=== PATIENT | female | born 1980 | race Caucasian/White ===

== ENCOUNTER 2017-11-29 14:44 | Emergency (ER) | payer OTHER ==
[2017-11-29 15:56] VITALS: BP 116/68
--- NOTE | 2017-11-29 16:06 | UC ---
Eye Complaint HPI - HPI Summary HPI Summary: 37-year-old female comes in to clinic today with a chief complaint of swelling in the right lower lateral eyelid. It started about a week ago. It's been getting progressively bigger now it's irritating her eye. This been no drainage no difficulty with vision no sinusitis infection symptoms. No vision change. - History of Current Complaint Chief Complaint: UCSkin Stated Complaint: RIGHT EYE CONCERN Time Seen by Provider: 11/29/17 15:54 Hx Last Menstrual Period: now Pain Intensity: 0 - Allergies/Home Medications Allergies/Adverse Reactions: Allergies Allergy/AdvReac Type Severity Reaction Status Date / Time moxifloxacin [From Avelox] Allergy Agitation Verified 11/29/17 15:48 oxycodone Allergy Hives Verified 11/29/17 15:48 prochlorperazine Allergy seizure Verified 11/29/17 15:45 [From Compazine] amoxicillin AdvReac Nausea Verified 11/29/17 15:48 Home Medications: Home Medications Acetaminophen [Tylenol Extra Strength] 1,000 mg PO QAM PRN 11/29/17 [History Confirmed 11/29/17] Ibuprofen TAB* [Motrin TAB* 800 MG] 800 mg PO DAILY 11/29/17 [History Confirmed 11/29/17] PMH/Surg Hx/FS Hx/Imm Hx Cancer History: Other - Left face basal cell cancer history Other Cancer History: LEFT FACE BASAL CELL - Surgical History Surgical History: Yes Surgery Procedure, Year, and Place: facial - Family History Known Family History: Negative: Diabetes - Social History Alcohol Use: None Substance Use Type: None Smoking Status (MU): Heavy Every Day Tobacco Smoker Review of Systems Constitutional: Negative Skin: Other - see hpi Eyes: Other - see hpi ENT: Negative Respiratory: Negative Cardiovascular: Negative Gastrointestinal: Negative Motor: Negative Neurovascular: Negative Musculoskeletal: Negative Neurological: Negative Psychological: Negative Is Patient Immunocompromised?: No All Other Systems Reviewed And Are Negative: Yes Physical Exam Triage Information Reviewed: Yes Appearance: Well-Appearing, No Pain Distress, Well-Nourished Vital Signs: Initial Vital Signs Temp 98.6 F 11/29/17 15:51 Pulse 72 11/29/17 15:51 Resp 20 11/29/17 15:51 BP 116/68 11/29/17 15:51 Pulse Ox 100 11/29/17 15:51 Vital Signs Reviewed: Yes Eyes: Positive: Other: - Both eyes are normal without any drainage or discharge. No scleral injection. PERRLA EOMI. No hyphema. The right lower eyelid has a 5 mm swelling in the lateral aspect adjacent to the eyelashes. There is no drainage. No erythema. Swelling is slightly fluctuant. ENT: Positive: Pharynx normal Neck exam: Normal Neck: Positive: Supple Respiratory: Positive: No respiratory distress Musculoskeletal Exam: Normal Musculoskeletal: Positive: Strength Intact, ROM Intact Neurological Exam: Normal Neurological: Positive: Alert, Muscle Tone Normal Psychological Exam: Normal Psychological: Positive: Age Appropriate Behavior Skin Exam: Normal Eye Complaint Course/Dx - Differential Dx/Diagnosis Provider Diagnoses: right eye stye Discharge - Sign-Out/Discharge Documenting (check all that apply): Patient Departure All imaging exams completed and their final reports reviewed: No Studies - Discharge Plan Condition: Stable Disposition: HOME Prescriptions: Tobramycin 0.3% OPHTH.VIRI* 1 drop RIGHT EYE Q4H #1 btl Patient Education Materials: Litzy (ED) Referrals: Isela LARA,Romaine Main [Primary Care Provider] - Dung Jaramillo MD [Medical Doctor] - Iftikhar Choe MD [Medical Doctor] - [facility] [Provider Group] Additional Instructions: FOLLOW UP WITH OPHTHALMOLOGY IF NOT COMPLETELY IMPROVED. GET RECHECKED FOR ANY WORSENING OF YOUR CONDITION OR QUESTIONS OR CONCERNS. - Billing Disposition and Condition Condition: STABLE Disposition: Home
[2017-11-29] MEDS ORDERED: Tetan/Diph/Pertus SYR(Tdap)* 0.5 ML SYR(BOOSTRIX) use SYR IM ONE (16:08)
== END 2017-11-29 16:26 | disposition home or self-care (01) ==
LOC: UCCORT 14:44
DX: H00.012 Hordeolum externum right lower eyelid (principal); F17.210 Nicotine dependence, cigarettes, uncomplicated; Z85.828 Personal history of other malignant neoplasm of skin; Z88.1 Allergy status to other antibiotic agents; Z88.5 Allergy status to narcotic agent; Z88.8 Allergy status to other drugs, medicaments and biological substances
CPT/HCPCS: 90715; 99212; G0463